=== PATIENT | male | born 1975 | race Caucasian/White ===

== ENCOUNTER 2020-12-23 20:00 | Outpatient (CLI) | payer OTHER, SELFPAY | END 2020-12-23 20:01 | disposition home or self-care (01) | LOC: SLEEP 12-24 08:14 | PROVIDERS: Family Provider Family Medicine; Visit Provider Nurse Practitioner Family | DX: G47.10 Hypersomnia, unspecified (principal); R06.83 Snoring; R53.83 Other fatigue; G47.33 Obstructive sleep apnea (adult) (pediatric) | CPT/HCPCS: 95810 ==

== ENCOUNTER 2022-01-27 18:17 | Emergency (ER) | payer OTHER, SELFPAY ==
[2022-01-27 18:22] VITALS: BP 133/92; PULSE 93; RESP 16; TEMP 36.9; O2SAT 97
[2022-01-27 18:23] VITALS: BMI 33.3
[2022-01-27 19:16] VITALS: RESP 17
[2022-01-27] MEDS: HYDROmorphone 1 mg/mL INJ 1 mL IM (19:16)
[2022-01-27 19:34] VITALS: BP 124/86; PULSE 85; RESP 16; O2SAT 95
--- NOTE | 2022-01-27 19:37 | ED_ITS ---
HPI - Extremity Problem General: Chief complaint: Extremity Injury, Lower Stated complaint: L foot injury Time Seen by Provider: 01/27/22 18:19 History of Present Illness: This is a 46-year-old man who presents today with increased left foot pain. He reports that on Monday, he dropped the tongue of his trailer on his left foot and then the trailer rolled over his left foot. He reports that he was seen in [facility] and they did x-rays and splinted the foot. He was referred to Ortho but they did not have an appointment for him for 3 weeks. His pain is worsening significantly today. Associated symptoms: Deny fever(s) Review of Systems Const: Denies: fever(s), chills or body aches Musc: Reports: extremity pain (Left foot pain and swelling) Physical Exam Const: COMMON NORMALS: no acute distress, patient oriented x3 and alert Resp: COMMON NORMALS: normal respiratory effort and No use of accessory muscles Extremity: NARRATIVE EXTREMITY EXAM: Left foot is generally swollen and bruised. The patient has a posterior splint on which is removed so that I can have better visualization. Strong posterior tibialis pulse bilateral feet to palpation. Left foot has significant swelling in the area of which I would palpate the pedal pulse I did use a Doppler and was able to hear strong doppled pulse. The foot is warm and dry. He can move his toes. Neuro: COMMON NORMALS: patient oriented x3 SENSORIUM/ORIENTATION: Yes alert Course Vital Signs: Vital signs: Vital Signs Temperature 98.4 F 01/27/22 18:22 Pulse Rate 85 01/27/22 19:34 Respiratory Rate 16 01/27/22 19:34 Blood Pressure 124/86 01/27/22 19:34 Pulse Oximetry 95 01/27/22 19:34 Oxygen Delivery Me thod 01/27/22 18:22 MDM - Extremity (Nontraumatic) Medical Decision Making This is a 46-year-old male who is in today status post second and third metatarsal fracture of the foot. I was unable to see his note from when he went to [facility] however I was able to see the x-ray that was taken on Monday. The x-ray shows midshaft fracture of the second and third metatarsal on the left foot. The second metatarsal is not displaced however the third metatarsal is showing 50% apposition. Concerns for compartment syndrome are considered however the patient has great pulses, great sensation to the foot, neurovascular is intact. The advises that they put the patient in a posterior splint in the urgent care and referred him to orthopedics however they cannot get an appointment with Ortho for 3 weeks. She is concerned that this is too long. I reviewed the x-ray and I did discuss his case with Dr. Rowan who agrees that this is likely a surgical fracture. Patient should see podiatry ROSE. Patient's does advise that she was able to call today and get an appointment with Dr. Powers for Monday this coming week. I discussed the patient's pain control with Dr. Rowan. Patient has hydrocodone at home. Dr. Rowan ordered a one-time dose of Dilaudid and here today just to help patient get his pain to a tolerable level. Advised patient that he can use his home pain medication to manage pain moving forward. The foot is placed back in the posterior splint and rewrapped. Patient reports significant improvement in pain after Dilaudid dose. Patient is discharged to home to follow-up with Dr. Powers on Monday. Return to the ER for any new or worsening symptoms, changes in sensation, increased pain, changes in temperature to the foot. Discharge Plan Discharge Patient Disposition: Home Clinical Impression: Metatarsal fracture Qualifiers: Encounter type: subsequent encounter Metatarsal bone: unspecified metatarsal Fracture type: closed Fracture alignment: displaced Laterality: left Condition: Stable Discharge Orders: Discharge ED (Routine); Ordered 01/27/22 Ordered By: Leslie Mackey Referrals: Scarlet Arzate FNP [Primary Care Provider] - Discharge Diet: Usual diet Discharge Activity: Limit activity as instructed Patient Instructions: Opioid Safety, Pain Management Activity Restrictions/Additional Instructions: Keep the foot elevated above the level of the heart to help reduce swelling. Ice. Monitor for any worsening symptoms including increased pain, loss of sensation to the foot, change in temperature of the foot. Follow-up with Dr. Powers on Monday as scheduled. Return to the ER for any new or worsening symptoms. 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
== END 2022-01-27 19:48 | disposition home or self-care (01) ==
PROVIDERS: Emergency Provider Nurse Practitioner Family; PCP Nurse Practitioner Family
DX: S92.322A Displaced fracture of second metatarsal bone, left foot, initial encounter for closed fracture (principal); S92.332A Displaced fracture of third metatarsal bone, left foot, initial encounter for closed fracture; W20.8XXA Other cause of strike by thrown, projected or falling object, initial encounter
CPT/HCPCS: 96372; 99284; J1170

== ENCOUNTER 2022-01-31 10:11 | Outpatient (CLI) | payer OTHER, SELFPAY | END 2022-01-31 10:12 | disposition home or self-care (01) | LOC: SPT 10:14 | PROVIDERS: PCP Nurse Practitioner Family; Visit Provider Podiatrist Foot & Ankle Surgery | DX: Z46.89 Encounter for fitting and adjustment of other specified devices (principal); S92.325D Nondisplaced fracture of second metatarsal bone, left foot, subsequent encounter for fracture with routine healing; S92.332D Displaced fracture of third metatarsal bone, left foot, subsequent encounter for fracture with routine healing; X58.XXXD Exposure to other specified factors, subsequent encounter | CPT/HCPCS: 97760; L4361 ==

== ENCOUNTER 2022-02-03 12:45 | Day surgery (SDC) | payer OTHER, SELFPAY ==
[2022-02-02 10:07] VITALS: BMI 33.3
[2022-02-03] VITALS (9 sets, daily range): BP systolic 102–169; BP diastolic 40–99; PULSE 78–92; RESP 16–148; TEMP 36.2–36.9; O2SAT 95–97
--- NOTE | 2022-02-03 | SCC_ITS ---
Procedure done: Left foot third metatarsal fracture open reduction internal fixation CPT 20628 1minute, 42 seconds of fluoroscopic guidance, for a cumulative dose of 1.814 mGy, was provided to Dr. Gandhi by the radiology department. C-arm images of the left foot were saved for the patient's permanent record. [facility]
[2022-02-03] MEDS: sodium chloride 0.9% 1,000 ML 30 ML IV (13:58)
[2022-02-03] MEDS: gabapentin 300 mg Capsule PO (13:59)
[2022-02-03] MEDS: CELEcoxib 200 mg Capsule 400 MG PO (13:59)
[2022-02-03] MEDS: scopolamine 1.5 Patch 1 PATCH TRANSDERMA (14:09)
[2022-02-03 14:42] LABS: Blood Urea Nitrogen 14 mg/dL (6-20); Calcium 9.8 mg/dL (8.5-10.5); Carbon Dioxide 27 mmol/L (22-29); Chloride 98 mmol/L (98-107); Glomerular Filtration Rate 79.8 mL/min (90-130); Glucose 91 mg/dL (65-115); Osmolality Calculated 288 mOsm/kg (285-295); Sodium 139 mmol/L (136-145)
[2022-02-03 14:44] LABS: Anion Gap 17.8 (5-19); Potassium 3.8 mmol/L (3.5-5.1)
--- NOTE | 2022-02-03 14:51 | W.PM.OPSUD ---
Surgery/Procedure H&P Update DATE OF PROCEDURE: February 03, 2022 DATE H&P PERFORMED: 01/31/22 CHANGES TO PREVIOUS DOCUMENTATION: No changes to previous documentation PREOP DIAGNOSIS: left foot displaced 2nd and 3rd metatarsal fractures PRIMARY INDICATION FOR PROCEDURE: Left foot 2nd and 3rd metatarsal fractures, displaced PLANNED PROCEDURE: Operation Date: 02/03/22 14:30 Proposed Procedures p ORIF left 2ND Metatarsal, 05608 ORIF Left 3RD Metatarsal, 24228(Left) - Charli Gandhi DPM
--- NOTE | 2022-02-03 14:54 | ANES.PREANE2 ---
Pre-Anesthetic Assessment Height/Weight: Height 1.88 m Weight 117.934 kg Temp Pulse Resp BP Pulse Ox O2 Del Method 98.5 F 92 16 169/99 95 02/03/22 13:18 02/03/22 13:18 02/03/22 13:18 02/03/22 13:18 02/03/22 13:18 02/03/22 13:21 Preop Diagnosis: left foot displaced 2nd and 3rd metatarsal fractures Operation Date: 02/03/22 14:30 Proposed Procedures p ORIF left 2ND Metatarsal, 30099 ORIF Left 3RD Metatarsal, 16022(Left) - Charli Gandhi DPM Familial anesthetic complications: none Was Beta Gloria taken within 24 hours: N/A Was Clonidine taken within 24 hours: N/A Last intake: Intake Last Liquid Date 02/03/22 Last Liquid Time 08:00 Last Solid Date 02/02/22 Last Solid Time 22:00 Social No alcohol and No tobacco Exam alert, oriented x 3, clear to auscultation bilaterally and regular rate & rhythm Airway Submandibular: within normal limits Cervical ROM: within normal limits Mallampati: Class II Dentition: full CV/HEM Hypertension Metabolic Morbid Obesity Anesthetic Plan ASA status: 2 Anesthesia: General Medications/Allergies Home Medications Medication Instructions Recorded Confirmed Last Taken Type DME: Walker #1 ea 01/31/22 01/31/22 Unknown Rx amlodipine 2.5 mg tablet 2.5 mg PO DAILY 01/31/22 02/03/22 02/03/22 08:00 History cam boot #1 ea 01/31/22 01/31/22 Unknown Rx losartan 100 1 tab PO DAILY 01/31/22 02/03/22 02/03/22 08:00 History mg-hydrochlorothiazide 25 mg tablet mirtazapine 15 mg tablet 30 mg PO DAILY 01/31/22 02/03/22 02/02/22 20:00 History quetiapine 100 mg tablet 100 mg PO DAILY 01/31/22 02/03/22 02/02/22 20:00 History hydrocodone 5 mg-acetaminophen 325 1 tab PO Q6H PRN Post op pain 7 02/03/22 Unknown Rx mg tablet days #28 tabs Allergies Allergy/AdvReac Type Severity Reaction Status Date / Time fosinopril [From Monopril] Allergy Mild ALGY-Rash Verified 02/02/22 10:04 Current Medications Generic Name Dose Route Start Last Admin Trade Name Jose L PRN Reason Stop Dose Admin Sodium Chloride 1,000 mls @ 30 mls/hr 02/03/22 13:15 02/03/22 13:58 Sodium Chloride 0.9% IV 02/04/22 13:14 30 mls/hr .Q24H SUSANA Administration PFSH Anesthesia Family History (Updated 01/31/22 @ 09:04 by Cary Vargas LPN) Father Hypertension Data Anesthesia : 02/03/22 13:40 BMP 02/03/22 13:40 Sodium 139 Potassium 3.8 Chloride 98 Carbon Dioxide 27 BUN 14 Creatinine 1.0 Glucose 91 Calcium 9.8 Cardiac Studies: No Data to Display
[2022-02-03] MEDS: ceFAZolin 2,000 MG in sodium chloride 0.9% (plus) 50 ML 100 MG IV (15:25)
--- NOTE | 2022-02-03 16:43 | XRR_ITS ---
PROCEDURE INFORMATION: Exam: XR Left Foot Exam date and time: 02/03/2022 4:51 PM Age: 46 years old Clinical indication: Device placement; Other: Post op; Prior surgery TECHNIQUE: Imaging protocol: Radiologic exam of the Left foot. Views: 3 or more views. COMPARISON: CR XR foot LT min 3V* [id number] 01/25/2022 8:28 AM FINDINGS: Bones/joints: Orthopedic plate seen bridging a 3rd metatarsal fracture which was previously visualized. Second metatarsal mid shaft fracture again seen with anatomic alignment. First metatarsal mid shaft subtle fracture may be present, not seen with certainty on prior exam, a 5-7 day follow-up exam could be performed for reassessment. Soft tissues: Normal. XR/XR foot LT min 3V* [id number] IMPRESSION: 1. Orthopedic plate seen bridging a 3rd metatarsal fracture which was previously visualized. 2. Second metatarsal mid shaft fracture again seen with anatomic alignment. 3. First metatarsal mid shaft subtle fracture may be present, not seen with certainty on prior exam, a 5-7 day follow-up exam could be performed for reassessment.
--- NOTE | 2022-02-03 17:24 | ANE.PACU2 ---
Inpatient post-anesthesia follow up: Airway intact: Yes Vital signs: Temperature 97.8 F Pulse Rate 88 Respiratory Rate 16 Blood Pressure 129/96 Pulse Oximetry 95 Oxygen Delivery Me thod Room Air Oxygen Flow Rate Fraction of Inspir ed Oxygen Hydration adequate: Yes Nausea and vomiting: No Pain level: 2 Mental status: Baseline
--- NOTE | 2022-02-03 18:45 | P.OP_ITS ---
Operative Report Date of procedure: February 03, 2022 Pre-op diagnosis: Preop Diagnosis left foot displaced 2nd and 3rd metatarsal fractures Post-op diagnosis: Same Post-op findings: Left foot third metatarsal displaced fracture. Second tarsal minimally displaced to the point that fixation was not warranted Procedure done: Left foot third metatarsal fracture open reduction internal fixation CPT 87843 Implants: One 4-hole straight plate with 2.5 mm locking screws from [place] [employer] Pathology: None Surgeon: Charli Gandhi D.P.M. Estimated blood loss: Less than 10 mL 31 minutes Complications: None Findings: See above Brief History: Patient sustained a left foot second and third metatarsal fracture after he dropped a tongue of the trailer on his left foot Procedure: Patient is a 46-year-old male that has a history of left foot second and third metatarsal fractures. The fractures are to the point at least the third metatarsal warrants open reduction internal fixation. A lengthy discussion regarding the procedure, including risks and complications has been had with the patient and is noted in the recent clinic note. Written and verbal consent have been obtained. All patient questions have been answered to the patient?s satisfaction. No written or verbal guarantees have been given or implied. The patient has been NPO since midnight. The history has been reviewed and the history and physical is current. The signed consent was confirmed and placed in the patient chart. Patient imaging has been reviewed and is consistent with thediagnosis. Under mild sedation, the patient was brought into the operating room and placed on the table in the supine position. IV antibiotics were given by the anesthesia team as preoperative surgical prophylaxis. General sedation was then performed by the anesthesia team. A pneumatic tourniquet was then placed about the left ankle. The operative extremity was then prepped and draped in the usual fashion. The extremity was then elevated and exsanguinated before the tourniquet was inflated to 250 mmHg. After inflation, the following procedure was then performed. Attention was directed to the left foot where under C-arm fluoroscopy the third metatarsal was visualized. There is noted to be a displaced fracture with thomas sverse plane displacement of the third metatarsal. The incision was planned out according to the fracture pattern. Next #15 blade was used to make a 5 cm incision over the dorsal aspect of the third metatarsal. Dissection was carried down through subcutaneous and superficial fascia. Any bleeders were cauterized as necessary. Dissection was carried out to expose the underlying third metatarsal. The extensor tendons were visualized and safely retracted out of the operative field. The third metatarsal fracture was clearly visualized. The distal aspect was freely mobile. Site was irrigated and hematoma was cleared out from the third metatarsal fracture site. Next, the fracture was reduced and reduction was held using a lobster clamp. Next a 4-hole straight plate from [place] [employer] was placed over the fracture line. It was temporarily fixated with olive wires. Good positioning of the plate and fracture was visualized on C-arm imaging. The holes of the plate were then drilled and filled in standard fashion using 2.5 x 10 mm locking screws from [place] [employer]. The clamp was removed and good anatomic reduction was visualized. Good positioning of the hardware was also visualized. The site was then irrigated with copious amounts of sterile saline. The second metatarsal was examined and was noted to be well reduced and nondisplaced. It was decided this point not to proceed with open reduction internal fixation of the second metatarsal as the patient will be strict nonweightbearing over the course of the next weeks. After irrigation attention was directed to closure. Deep tissue was closed with 3-0 Vicryl followed by cuticular closure with 4-0 Vicryl and skin closure with 4-0 nylon in running interlocking fashion. The foot was then anesthetized at this point using 20 cc of 0.5% Marcaine plain. The tourniquet was let down good hyperemic spots was noted to all digits of the left foot. The incision was dressed with Xeroform, 4 x 4 gauze, Kerlix and Dave bandage. The patient was placed in a below the knee cam boot. The patient tolerated the procedure and anesthesia well and without complication. The patient was transported from the operating room to the [facility] room with vital signs stable and vascular status intact to all digits of the left foot. The patient was given both written and verbal instructions to remain nonweightbearing to the operative extremity, to keep dressings/splint clean, dry and intact and to take pain medication as directed. The patient will follow-up in the outpatient setting at their scheduled appointment. The patient was discha rged with my personal number and was instructed to call if any questions or issues should arise. They were discharged home once anesthesia criteria was met.
== END 2022-02-03 17:35 | disposition home or self-care (01) ==
PROVIDERS: Anesthesiology; PCP Nurse Practitioner Family; Visit Provider Podiatrist Foot & Ankle Surgery
PROC: (CPT 28485; principal; 2022-02-03 14:30)
DX: S92.322A Displaced fracture of second metatarsal bone, left foot, initial encounter for closed fracture (principal); S92.332A Displaced fracture of third metatarsal bone, left foot, initial encounter for closed fracture; R60.9 Edema, unspecified; W23.0XXA Caught, crushed, jammed, or pinched between moving objects, initial encounter
CPT/HCPCS: 28485; 36415; 73630; 76000; 80048; C1713; J1170; J2250; J2405; J2704; J3010; J3490; J7030

== ENCOUNTER → 2022-02-09 09:46 | Outpatient (BNVA) | payer OTHER, SELFPAY | PROVIDERS: PCP Nurse Practitioner Family; Visit Provider Podiatrist Foot & Ankle Surgery | DX: Z48.89 Encounter for other specified surgical aftercare (principal); X58.XXXA Exposure to other specified factors, initial encounter; R60.9 Edema, unspecified; S92.332A Displaced fracture of third metatarsal bone, left foot, initial encounter for closed fracture; S92.322A Displaced fracture of second metatarsal bone, left foot, initial encounter for closed fracture | CPT/HCPCS: 73630 ==

== ENCOUNTER → 2022-02-16 09:46 | Outpatient (BNVA) | payer OTHER, SELFPAY | PROVIDERS: PCP Nurse Practitioner Family; Visit Provider Podiatrist Foot & Ankle Surgery | DX: Z48.89 Encounter for other specified surgical aftercare (principal); X58.XXXA Exposure to other specified factors, initial encounter; R60.9 Edema, unspecified; S92.332A Displaced fracture of third metatarsal bone, left foot, initial encounter for closed fracture; S92.322A Displaced fracture of second metatarsal bone, left foot, initial encounter for closed fracture | CPT/HCPCS: 73630 ==

== ENCOUNTER → 2022-02-21 13:49 | Outpatient (BNVA) | payer OTHER, SELFPAY | PROVIDERS: PCP Nurse Practitioner Family; Visit Provider Podiatrist Foot & Ankle Surgery | DX: Z48.89 Encounter for other specified surgical aftercare (principal); X58.XXXA Exposure to other specified factors, initial encounter; R60.9 Edema, unspecified; S92.332A Displaced fracture of third metatarsal bone, left foot, initial encounter for closed fracture; S92.322A Displaced fracture of second metatarsal bone, left foot, initial encounter for closed fracture | CPT/HCPCS: 73630 ==

== ENCOUNTER → 2022-02-28 08:27 | Outpatient (BNVA) | payer OTHER, SELFPAY | PROVIDERS: PCP Nurse Practitioner Family; Visit Provider Podiatrist Foot & Ankle Surgery | DX: Z48.89 Encounter for other specified surgical aftercare (principal); S92.322A Displaced fracture of second metatarsal bone, left foot, initial encounter for closed fracture; S92.332A Displaced fracture of third metatarsal bone, left foot, initial encounter for closed fracture; X58.XXXA Exposure to other specified factors, initial encounter; R60.9 Edema, unspecified | CPT/HCPCS: 73630 ==

== ENCOUNTER → 2022-03-14 08:30 | Outpatient (BNVA) | payer OTHER, SELFPAY | PROVIDERS: PCP Nurse Practitioner Family; Visit Provider Podiatrist Foot & Ankle Surgery | DX: Z48.89 Encounter for other specified surgical aftercare (principal); S92.322D Displaced fracture of second metatarsal bone, left foot, subsequent encounter for fracture with routine healing; S92.332D Displaced fracture of third metatarsal bone, left foot, subsequent encounter for fracture with routine healing; X58.XXXD Exposure to other specified factors, subsequent encounter | CPT/HCPCS: 73630 ==